=== PATIENT | female | born 1955 | race American Indian/Alaskan Native ===

== ENCOUNTER 2018-03-11 21:03 | Emergency (ER) | payer OTHER ==
[~2018-03-11] VITALS: Ht 157.5 cm; Wt 54.9 kg
[2018-03-11] MEDS ORDERED: NEXIUM40 M1 PO (21:22)
[2018-03-11 22:05] VITALS: BP 128/78; TEMP 97.7
== END 2018-03-11 22:05 | disposition home or self-care (01) ==
LOC: ED 21:03
DX: T22.011A Burn of unspecified degree of right forearm, initial encounter (principal); T31.0 Burns involving less than 10% of body surface; X19.XXXA Contact with other heat and hot substances, initial encounter
CPT/HCPCS: 90471; 90715; 99282

== ENCOUNTER 2019-05-10 08:57 | Emergency (ER) | payer OTHER ==
[~2019-05-10] VITALS: Ht 157.5 cm; Wt 57.6 kg
[~2019-05-10 08:57] MED LIST: NEXIUM40 M1 PO
[2019-05-10 09:09] VITALS: TEMP 98.8
[2019-05-10 10:14] LABS: PLATELET COUNT 164 K/uL (152-353)
[2019-05-10 10:20] LABS: POTASSIUM 3.5 mmol/L (3.6-5.2)
[2019-05-10 11:07] VITALS: BP 138/80
== END 2019-05-10 11:07 | disposition home or self-care (01) ==
LOC: ED 08:57
PROVIDERS: Hospitalist
DX: J06.9 Acute upper respiratory infection, unspecified (principal)
CPT/HCPCS: 36415; 80048; 85027; 87502; 99283

== ENCOUNTER 2019-09-29 02:02 | Emergency (ER) | payer OTHER ==
[~2019-09-29] VITALS: Ht 157.5 cm; Wt 54.4 kg
[2019-09-29 02:10] VITALS: TEMP 97.7
[2019-09-29 03:54] VITALS: BP 132/67
== END 2019-09-29 03:56 | disposition home or self-care (01) ==
LOC: ED 02:02
DX: S83.91XA Sprain of unspecified site of right knee, initial encounter (principal); W22.8XXA Striking against or struck by other objects, initial encounter
CPT/HCPCS: 99283

== ENCOUNTER 2020-04-18 11:56 | Outpatient (CLI) | payer OTHER | END 2020-04-18 21:29 | disposition home or self-care (01) | LOC: RAD 11:56 | DX: J20.9 Acute bronchitis, unspecified (principal) ==

== ENCOUNTER 2020-05-02 09:00 | Outpatient (CLI) | payer OTHER | END 2020-05-02 22:58 | disposition home or self-care (01) | LOC: RESP 09:00 | DX: G45.3 Amaurosis fugax (principal) ==

== ENCOUNTER 2020-05-10 09:34 | Outpatient (CLI) | payer OTHER | END 2020-05-10 19:19 | disposition home or self-care (01) | LOC: RAD 09:34 | DX: Z13.820 Encounter for screening for osteoporosis (principal); Z12.31 Encounter for screening mammogram for malignant neoplasm of breast; N95.8 Other specified menopausal and perimenopausal disorders ==

== ENCOUNTER 2020-05-16 10:05 | Outpatient (CLI) | payer OTHER | END 2020-05-16 19:16 | disposition home or self-care (01) | LOC: MRI 10:05 | DX: H53.121 Transient visual loss, right eye (principal) ==

== ENCOUNTER 2020-06-15 10:35 | Outpatient (CLI) | payer OTHER | END 2020-06-15 22:23 | disposition home or self-care (01) | LOC: RAD 10:35 | DX: S16.1XXA Strain of muscle, fascia and tendon at neck level, initial encounter (principal); S29.019A Strain of muscle and tendon of unspecified wall of thorax, initial encounter; S39.012A Strain of muscle, fascia and tendon of lower back, initial encounter ==

== ENCOUNTER 2020-06-28 10:01 | Outpatient (CLI) | payer OTHER | END 2020-06-28 20:18 | disposition home or self-care (01) | LOC: NM 10:01 | DX: R07.89 Other chest pain (principal); R94.31 Abnormal electrocardiogram [ECG] [EKG]; G45.3 Amaurosis fugax | CPT/HCPCS: A9500; J2785 ==

== ENCOUNTER 2020-08-06 19:40 | Emergency (ER) | payer OTHER ==
[~2020-08-06] VITALS: Ht 157.5 cm; Wt 47.2 kg
[2020-08-06 20:01] VITALS: TEMP 98.6
[2020-08-06 21:48] LABS: PLATELET COUNT 372 K/uL (152-353)
[2020-08-06 21:50] LABS: POTASSIUM 4.1 mmol/L (3.6-5.2)
[2020-08-06 22:45] VITALS: BP 130/75
== END 2020-08-06 22:45 | disposition home or self-care (01) ==
LOC: ED 19:40
PROVIDERS: Family Medicine
DX: R07.81 Pleurodynia (principal); C34.90 Malignant neoplasm of unspecified part of unspecified bronchus or lung
CPT/HCPCS: 80053; 83605; 85027; 87040; 96374; 99284; J1885

== ENCOUNTER 2020-08-07 11:15 | Emergency (ER) | payer OTHER ==
[~2020-08-07] VITALS: Ht 157.5 cm; Wt 47.2 kg
[2020-08-07 11:19] VITALS: TEMP 97.5
[2020-08-07 11:51] LABS: PLATELET COUNT 372 K/uL (152-353)
[2020-08-07 11:58] LABS: POTASSIUM 4.5 mmol/L (3.6-5.2); SODIUM 137 mmol/L (136-145)
[2020-08-07 12:14] LABS: PARTIAL THROMBOPLASTIN TIME 26.2 SECONDS (24.5-33.6)
[2020-08-07 14:55] VITALS: BP 126/79
== END 2020-08-07 15:07 | disposition short-term general hospital (02) ==
LOC: ED 11:15
PROVIDERS: Hospitalist
PROC: 0T9B70Z Drainage of Bladder with Drainage Device, Via Natural or Artificial Opening (ICD-10-PCS; principal; 2020-08-07)
DX: J18.9 Pneumonia, unspecified organism (principal); J90 Pleural effusion, not elsewhere classified; C34.90 Malignant neoplasm of unspecified part of unspecified bronchus or lung; Z20.828 Contact with and (suspected) exposure to other viral communicable diseases; F17.210 Nicotine dependence, cigarettes, uncomplicated
CPT/HCPCS: 36415; 51702; 80053; 81000; 82550; 83605; 83880; 84484; 85027; 85610; 85730; 87040; 87502; 87635; 87651; 93005; 96360; 96365; 96375; 99284; J1940; J1956; U0003